=== PATIENT | male | born 1955 | race Caucasian/White ===

== ENCOUNTER → 2024-05-23 12:49 | Outpatient (REF) | payer MEDICARE, OTHER, SELFPAY | LOC: HWRCS 12:49 | PROVIDERS: ATTENDING PHYSICIAN Internal Medicine; FAMILY PHYSICIAN Nurse Practitioner | DX: I25.10 Atherosclerotic heart disease of native coronary artery without angina pectoris (principal); I25.5 Ischemic cardiomyopathy; I25.82 Chronic total occlusion of coronary artery; I44.4 Left anterior fascicular block; I47.29 Other ventricular tachycardia; I25.2 Old myocardial infarction | CPT/HCPCS: 93306 ==

== ENCOUNTER → 2025-07-29 13:44 | Outpatient (REF) | payer MEDICARE, OTHER, SELFPAY | LOC: HWRCS 13:44 | PROVIDERS: ATTENDING PHYSICIAN Nurse Practitioner Gerontology | DX: I25.5 Ischemic cardiomyopathy (principal) | CPT/HCPCS: 93306 ==